=== PATIENT | female | born 1945 | race Caucasian/White ===

== ENCOUNTER → 2016-11-06 | Outpatient (CLI) | payer BC ==
[~2016-11-06] MED LIST: ATOR10TA88 PO; BNC40 PO; CALC600T9 PO; CYAN10005 PO; ESCI10TA17 PO; LORA-741 PO; MULTTAB5 PO; PANT40TA PO; POTASSIUM PO; [UNRECOGNIZED DRUG - CODE] TOP
== END | disposition home or self-care (01) ==
LOC: C.LAB1850 15:43
PROVIDERS: ATTEND Obstetrics & Gynecology
DX: R19.00 Intra-abdominal and pelvic swelling, mass and lump, unspecified site (principal)

== ENCOUNTER → 2016-11-20 | Outpatient (CLI) | payer BC ==
[2016-11-20 11:27] LABS: ALT/SGPT 23 U/L (12-78); BLOOD UREA NITROGEN 17 mg/dl (7-18); BUN/CREATININE RATIO 18.8 (10-20); CALCIUM 8.9 mg/dl (8.5-10.1); CARBON DIOXIDE 25 mmol/L (21-32); CHLORIDE 102 mmol/L (98-107); CHOLESTEROL 190 mg/dl (0-200); CREATININE 0.88 mg/dl (0.60-1.20); GLUCOSE 84 mg/dl (70-99); POTASSIUM 4.1 mmol/L (3.5-5.1); SODIUM 136 mmol/L (136-145)
[2016-11-20 11:29] LABS: ALB/GLOB RATIO 1.1 (0.9-2); ALKALINE PHOSPHATASE 68 U/L (45-117); AST/SGOT 19 U/L (15-37); CHOLESTEROL/HDL RATIO 2.1; HDL CHOLESTEROL 91 mg/dl; LDL CHOLESTEROL CALCULATED 80 mg/dl; TRIGLYCERIDES 97 mg/dl (0-150); VERY LOW DENSITY LIPOPROT CALC 19 mg/dl
== END | disposition home or self-care (01) ==
LOC: C.LAB1850 09:32
PROVIDERS: ATTEND Obstetrics & Gynecology Gynecologic Oncology
DX: R19.00 Intra-abdominal and pelvic swelling, mass and lump, unspecified site (principal); E87.1 Hypo-osmolality and hyponatremia

== ENCOUNTER → 2016-11-23 | Outpatient (CLI) | payer BC ==
[~2016-11-23] MED LIST changes: +OPTIRAY 320 IV PRN
--- NOTE | 2016-11-23 10:48 | DIAGNOSTIC IMAGING REPORT ---
CT ABD/PELVIS IV AND ORAL CONT CLINICAL HISTORY: PELVIC MASS COMPARISON STUDY: None. TECHNIQUE: Following the IV administration of 93 mL of Optiray-320, CT scan of the abdomen and pelvis was performed from the lung bases to the proximal femurs. Images are reviewed in the axial, sagittal, and coronal planes. IV contrast was administered without complication. CT DOSE: 474.06 mGy.cm FINDINGS: Lower chest: There is scattered calcified granulomas, as well as noncalcified nodules the largest of which is located within the left lower lobe in a subpleural location measuring 6 mm. Liver: There are several hypodensities within left hepatic lobe, the largest of which measures 9 mm. These approach water attenuation likely represent cysts. Gallbladder: Unremarkable. Spleen: Normal in size and attenuation. Pancreas: Unremarkable. Adrenal glands: Unremarkable. Kidneys: There is an 8 mm upper pole left renal cyst Bowel: There are no transition zones indicate bowel obstruction. There is no evidence of acute appendicitis. There is no evidence of acute diverticulitis. Peritoneum: There is no intraperitoneal free air or abdominal ascites. Vasculature: The abdominal aorta is normal in course and caliber. Adenopathy: None. Pelvic viscera: The patient appears to be status post a prior hysterectomy. There is a 4.6 cm left adnexal mass. This exceeds water attenuation. This is potentially of ovarian origin. Please correlate with prior surgical history. Skeletal structures: No destructive osseous lesions are seen. IMPRESSION: 1. Scattered bilateral pulmonary nodules, many of which are calcified. There is a noncalcified 6 mm left lower lobe subpleural nodule 2. Hepatic hypodensities likely representing cysts. 3. Surgically absent uterus. 4. Indeterminate 4.6 cm left adnexal mass, possibly of ovarian origin 5. No evidence of bowel obstruction. No evidence of free air 6. No evidence of pathologic adenopathy. No evidence of ascites. No suspicious peritoneal implants are visualized. Electronically signed by: Bert Diallo M.D. 11/23/2016 10:47 AM Dictated Date/Time: 11/23/2016 10:41 AM
== END | disposition home or self-care (01) ==
LOC: C.CTS 10:11
PROVIDERS: ATTEND Obstetrics & Gynecology Gynecologic Oncology
DX: R19.00 Intra-abdominal and pelvic swelling, mass and lump, unspecified site (principal); R91.8 Other nonspecific abnormal finding of lung field

== ENCOUNTER → 2017-06-29 | Outpatient (CLI) | payer BC ==
[~2017-06-29] MED LIST changes: -OPTIRAY 320 IV PRN
== END | disposition home or self-care (01) ==
LOC: C.LAB1850 12:50
PROVIDERS: ATTEND Family Medicine
DX: Z11.59 Encounter for screening for other viral diseases (principal)

== ENCOUNTER → 2017-10-01 | Outpatient (CLI) | payer BC ==
[~2017-10-01] MED LIST changes: +ATOR10TA82 PO; -ATOR10TA88 PO
--- NOTE | 2017-10-02 07:53 | MAMMOGRAPHY REPORT ---
BILATERAL DIGITAL SCREENING MAMMOGRAM WITH CAD: 10/01/2017 CLINICAL HISTORY: Routine screening. Patient has no complaints. TECHNIQUE: Bilateral CC and MLO views were obtained. Current study was also evaluated with a Compute r Aided Detection (CAD) system. COMPARISON: Comparison is made to exams dated: 09/28/2016 mammogram, 09/16/2015 mammogram, 04/09/2014 mammogram, 10/11/2012 mammogram, 10/10/2011 mammogram, and 10/06/2010 mammogram - [facility]. BREAST COMPOSITION: The tissue of both breasts is heterogeneously dense, which may obscure small mas ses. FINDINGS: There are asymmetries in the retroglandular fat of the lateral right breast, only seen on the CC view which could represent normal fibroglandular tissue. However, there are increasingly cons picuous comparing to all available prior mammograms and additional spot compression tomosynthesis vie ws and possible ultrasound are recommended. There are scattered benign rim calcifications bilaterally. No other suspicious mass, architectural d istortion or cluster of microcalcifications is seen. IMPRESSION: ACR BI-RADS CATEGORY 0: INCOMPLETE EVALUATION: NEED ADDITIONAL IMAGING EVALUATION The asymmetries in the lateral right breast, retroglandular fat, need additional evaluation. The patient will be called to schedule an appointment. Approximately 10% of breast cancers are not detected with mammography. A negative mammographic report should not delay biopsy if a clinically suggestive mass is present. Darlin Schroeder M.D. ay/:10/01/2017 16:15:12 [employer] Worker: Chichi TATE(Ana)([employer])(BD), [facility] letter sent: Addl Imaging 0 BI-RADS Code: ACR BI-RADS Category 0: Incomplete Evaluation: Need Additional Imaging Evaluation
== END | disposition home or self-care (01) ==
LOC: C.MAMM 11:03
PROVIDERS: ATTEND Obstetrics & Gynecology
DX: Z12.31 Encounter for screening mammogram for malignant neoplasm of breast (principal); R92.8 Other abnormal and inconclusive findings on diagnostic imaging of breast

== ENCOUNTER → 2017-10-04 | Outpatient (CLI) | payer BC ==
--- NOTE | 2017-10-04 14:36 | MAMMOGRAPHY REPORT ---
UNILATERAL RIGHT DIGITAL DIAGNOSTIC MAMMOGRAM TOMOSYNTHESIS WITH CAD AND TARGETED RIGHT ULTRASOUND: 1 12/05/2016 CLINICAL HISTORY: Callback from screening mammogram for right breast asymmetries. TECHNIQUE: Breast tomosynthesis in addition to standard 2D mammography was performed. Current study was also evaluated with a Computer Aided Detection (CAD) system. Spot compression right CC and MLO 2 -D and tomosynthesis images were obtained. COMPARISON: Comparison is made to exams dated: 10/01/2017 mammogram, 09/16/2015 mammogram, 09/28/2016 mammogram, 04/09/2014 mammogram, 10/11/2012 mammogram, and 10/10/2011 mammogram - [facility]. BREAST COMPOSITION: The tissue of the right breast is heterogeneously dense, which may obscure small masses. FINDINGS: The previously described asymmetries seen within the right lateral breast on the cc view e fface on the additional spot compression views, and have the appearance of normal fibroglandular tiss ue on the tomosynthesis images. No suspicious masses or areas of architectural distortion are noted on the additional views. Targeted ultrasound was performed of the right lateral breast in the region of the mammographic asymm etries. Sonographically normal tissue is seen in this region, without evidence of a mass or other watkins spicious sonographic abnormality. IMPRESSION: ACR BI-RADS CATEGORY 2: BENIGN, TARGETED ULTRASOUND ACR BI-RADS CATEGORY 2: BENIGN The right breast asymmetries efface on the additional views, without corresponding suspicious sonogra phic abnormalities evident. Findings are benign and compatible with normal fibroglandular tissue. T here is no mammographic or targeted sonographic evidence of malignancy. A 1 year screening mammogram is recommended. The patient has been verbally notified of the results. Approximately 10% of breast cancers are not detected with mammography. A negative mammographic report should not delay biopsy if a clinically suggestive mass is present. Sandra Larkin M.D. ah/:10/04/2017 09:47:55 Reproductive Endocrinologist: Diana MAY)(M), [facility] letter sent: Normal /2 BI-RADS Code: ACR BI-RADS Category 2: Benign Ultrasound BI-RADS: ACR BI-RADS Category 2: Benign
== END | disposition home or self-care (01) ==
LOC: C.MAMM 09:20
PROVIDERS: ATTEND Obstetrics & Gynecology
DX: N64.89 Other specified disorders of breast (principal)

== ENCOUNTER → 2018-01-15 | Outpatient (CLI) | payer BC ==
[2018-01-15 12:08] LABS: BASO ABS # 0.05 K/uL (0-0.2); EOS % 2.3 %; EOS ABS # 0.12 K/uL (0-0.5); HEMATOCRIT 39.9 % (37-47); HEMOGLOBIN 13.1 g/dL (12.0-16.0); LYMPH % 34.9 %; LYMPH ABS # 1.79 K/uL (1.2-3.4); MEAN CELL VOLUME 89.3 fL (80-100); MEAN CORPUSCULAR HEMOGLOBIN 29.3 pg (25-34); MEAN CORPUSCULAR HGB CONC 32.8 g/dl (32-36); MEAN PLATELET VOLUME 9.7 fL (7.4-10.4); MONO % 11.9 %; MONO ABS # 0.61 K/uL (0.11-0.59); NEUT % 49.9 %; NEUT ABS # 2.56 K/uL (1.4-6.5); PLATELET COUNT 294 K/uL (130-400); RED CELL DISTRIBUTION WIDTH CV 13.9 % (11.5-14.5); RED CELL DISTRIBUTION WIDTH SD 45.8 fL (36.4-46.3); WHITE BLOOD COUNT 5.13 K/uL (4.8-10.8)
[2018-01-15 12:22] LABS: ALT/SGPT 27 U/L (12-78); BLOOD UREA NITROGEN 11 mg/dl (7-18); CALCIUM 9.5 mg/dl (8.5-10.1); CARBON DIOXIDE 26 mmol/L (21-32); CREATININE 0.76 mg/dl (0.60-1.20); GLUCOSE 87 mg/dl (70-99); POTASSIUM 4.4 mmol/L (3.5-5.1); SODIUM 133 mmol/L (136-145)
[2018-01-15 12:33] LABS: CHOLESTEROL 201 mg/dl (0-200); LDL CHOLESTEROL CALCULATED 100 mg/dl
== END | disposition home or self-care (01) ==
LOC: C.LAB1850 10:14
PROVIDERS: ATTEND Family Medicine
DX: E78.00 Pure hypercholesterolemia, unspecified (principal); I10 Essential (primary) hypertension; R41.89 Other symptoms and signs involving cognitive functions and awareness

== ENCOUNTER → 2018-05-17 | Outpatient (CLI) | payer BC ==
--- NOTE | 2018-05-17 10:18 | DIAGNOSTIC IMAGING REPORT ---
(CHEST) THORAX WITHOUT CLINICAL HISTORY: R91.1 pulmonary nodule COMPARISON STUDY: 07/19/2017 CT DOSE: 383.04 mGycm TECHNIQUE: CT of the thorax was performed from the thoracic inlet to the lung bases. Images are reviewed in the axial, sagittal, and coronal planes. IV contrast was not administered for this examination. A dose lowering technique was utilized adhering to the principles of ALARA. FINDINGS: Thyroid: Imaged portions of the thyroid gland are normal in appearance. Thoracic aorta: The thoracic aorta is normal in course and caliber, noting standard 3 vessel arch anatomy. Heart: There are coronary artery calcifications present. Lungs and pleural spaces: There is no focal pulmonary consolidation. There are scattered calcified granulomas and tree-in-bud nodules consistent with an inflammatory/postinflammatory etiology. There is a stable 2 mm left apical pulmonary nodule. There is a stable noncalcified solid 7 mm right upper lobe pulmonary nodule. There is a stable 6 mm left lower lobe pleural-based point nodule. There is a stable solid 7 mm right middle lobe pulmonary nodule. Mediastinum: There is an anterior paratracheal lymph node the upper limits of normal in size. There is no pathologic adenopathy by size criteria. Galile[place]: There is no evidence of pathologic hilar adenopathy given the limitations of a noncontrast study. Axilla: There is no nodes of pathologic axillary lymphadenopathy. Upper abdomen: There is a stable left lobe hepatic hypodensity consistent with a cyst. Skeletal structures: There is upper thoracic vertebral body hemangioma. IMPRESSION: 1. No significant change from the preceding study 2. Multiple calcified and noncalcified pulmonary nodules, likely postinflammatory. The largest measures 7 mm. One additional 12 month follow-up is recommended. Electronically signed by: Bert Diallo M.D. 05/17/2018 10:17 AM Dictated Date/Time: 05/17/2018 10:07 AM
== END | disposition home or self-care (01) ==
LOC: C.CTS 09:55
PROVIDERS: ATTEND Family Medicine
DX: R91.1 Solitary pulmonary nodule (principal)